=== PATIENT | female | born 1950 | race Caucasian/White ===

== ENCOUNTER 2016-12-12 21:18 | Emergency (ER) | payer OTHER ==
[~2016-12-12] VITALS: Ht 162.6 cm; Wt 73.7 kg
[~2016-12-12 21:18] MED LIST: ASPIR-LOW81 M1; Ascorbic Acid,Ester- PO; BACTRIM,SEPT1 TABLET PO; CYMBALTA60 MG PO; Calcium/Magnesiun/Zi PO; D VI PO; EXFORGE 10/11 TABLET; EXFORGE 10/11 TABLET PO; Ecotrin PO; FLAGYL500 MG PO; LEVAQUIN750 MG PO; Lysine,L-Lysine PO; MULTIVITAMIN1 EAC2 PO; NEXIUM40 MG; NEXIUM40 MG PO; PERCOCET 5/31 TABLET PO; Percocet 5/325,Endoc PO; Rocephin IV; SIMVASTATIN20 M1 PO; Selenium PO; Super B Complex-C PO; VIT E; ZITHROMAX Z-PA250 MG PO; Zocor PO
[2016-12-12 22:22] LABS: HEMATOCRIT 38.1 % (36.0-46.0); MCHC 34.1 G/DL (30.0-36.0); MCV 84.9 FL (83-99); MEAN PLAT.VOLUME 8.7 uM^3 (9.5-12.4); PLATELET COUNT 256 K/uL (156-360); RBC DIS.WIDTH-CV 12.9 % (11.8-14.6); RBC DIS.WIDTH-SD 39.3 % (39-53); RED BLOOD COUNT 4.49 M/uL (3.80-5.20); WHITE BLOOD COUNT 6.2 K/uL (4.1-10.2)
[2016-12-12 22:30] LABS: CHLORIDE 105 mEq/L (99-109); POTASSIUM 3.7 mEq/L (3.7-5.4); SODIUM 142 mEq/L (136-147)
[2016-12-12 22:32] LABS: GLUCOSE 109 mg/dL (70-99)
[2016-12-12 22:33] LABS: ANION GAP 14 MEQ/L (2-14)
[2016-12-12 22:36] LABS: GFR ESTIMATE (CALCULATED) 40 mL/min/
[2016-12-12 22:37] LABS: UREA NITROGEN (BUN) 27 mg/dL (9-23)
[2016-12-13 01:15] VITALS: BP 125/66
== END 2016-12-13 01:16 | disposition home or self-care (01) ==
LOC: EME 21:18
PROVIDERS: Emergency Medicine
DX: G43.909 Migraine, unspecified, not intractable, without status migrainosus (principal); K52.9 Noninfective gastroenteritis and colitis, unspecified; E86.0 Dehydration; E78.5 Hyperlipidemia, unspecified; I10 Essential (primary) hypertension; Z86.73 Personal history of transient ischemic attack (TIA), and cerebral infarction without residual deficits; Z88.1 Allergy status to other antibiotic agents; Z88.6 Allergy status to analgesic agent; Z91.013 Allergy to seafood
CPT/HCPCS: 70450; 80048; 85027; 99281; 99285; J1100; J1200; J1885; J2765; J7030

== ENCOUNTER 2017-01-26 21:12 | Emergency (ER) | payer OTHER ==
[~2017-01-26] VITALS: Ht 160 cm; Wt 76.1 kg
[2017-01-26 22:10] LABS: HEMATOCRIT 38.8 % (36.0-46.0); MCH 29.1 PG (29.0-34.0); MCHC 33.5 G/DL (30.0-36.0); MCV 86.8 FL (83-99); PLATELET COUNT 234 K/uL (156-360); RBC DIS.WIDTH-CV 12.8 % (11.8-14.6); RBC DIS.WIDTH-SD 40.2 % (39-53); RED BLOOD COUNT 4.47 M/uL (3.80-5.20)
[2017-01-26 22:34] LABS: CHLORIDE 107 mEq/L (99-109); POTASSIUM 3.8 mEq/L (3.7-5.4); SODIUM 142 mEq/L (136-147)
[2017-01-26 22:35] LABS: GLUCOSE 107 mg/dL (70-99)
[2017-01-26 22:37] LABS: ANION GAP 10 MEQ/L (2-14)
[2017-01-26 22:39] LABS: GFR ESTIMATE (CALCULATED) 53 mL/min/
[2017-01-26 22:40] LABS: UREA NITROGEN (BUN) 25 mg/dL (9-23)
[2017-01-26] MEDS ORDERED: FIORICET 50-301 EACH PO (23:10)
[2017-01-26 23:19] LABS: ADD MIUA? NO; BILIRUBIN NEGATIVE; BLOOD NEGATIVE; COLOR STRAW ((YELLOW)); GLUCOSE (STRIP) NEGATIVE; KETONES NEGATIVE; LEUKOCYTES NEGATIVE; NITRITE NEGATIVE; PROTEIN (STRIP) NEGATIVE; SPECIFIC GRAVITY 1.009 (1.000-1.030); UCUL ADDED? NO; UROBILINOGEN 0.2 MG/DL (0.2-1.0)
[2017-01-27 00:28] VITALS: BP 164/81
== END 2017-01-27 00:32 | disposition home or self-care (01) ==
LOC: EME 21:12
PROVIDERS: Nurse Practitioner Family
DX: G43.109 Migraine with aura, not intractable, without status migrainosus (principal); I10 Essential (primary) hypertension; N28.9 Disorder of kidney and ureter, unspecified; E78.5 Hyperlipidemia, unspecified; Z87.442 Personal history of urinary calculi; K21.9 Gastro-esophageal reflux disease without esophagitis; Z86.73 Personal history of transient ischemic attack (TIA), and cerebral infarction without residual deficits
CPT/HCPCS: 80048; 81003; 85027; 99281; 99285; J1200; J1885; J2765; J7030

== ENCOUNTER 2018-05-06 10:59 | Observation (INO) | payer OTHER ==
[~2018-05-06] VITALS: Ht 160 cm; Wt 78.5 kg
[~2018-05-06 10:59] MED LIST changes: +FIORICET 50-301 EACH PO
[2018-05-06 11:40] LABS: HEMATOCRIT 39.6 % (36.0-46.0); HEMOGLOBIN 13.3 G/DL (11.9-15.5); MCH 29.8 PG (29.0-34.0); MCHC 33.6 G/DL (30.0-36.0); MCV 88.6 FL (83-99); PLATELET COUNT 221 K/uL (156-360); RBC DIS.WIDTH-CV 13.2 % (11.8-14.6); RBC DIS.WIDTH-SD 42.4 % (39-53); RED BLOOD COUNT 4.47 M/uL (3.80-5.20)
[2018-05-06 11:57] LABS: CHLORIDE 107 mEq/L (99-109); POTASSIUM 4.3 mEq/L (3.7-5.4); SODIUM 142 mEq/L (136-147)
[2018-05-06 11:59] LABS: GLUCOSE 101 mg/dL (70-99); TOTAL PROTEIN 6.7 g/dL (6.4-8.3)
[2018-05-06 12:01] LABS: TOTAL BILIRUBIN 0.8 mg/dL (0.0-1.0); TROP-I INTERPRETATION NEGATIVE; TROPONIN-I 0.01 ng/mL (0.0-0.30)
[2018-05-06 12:03] LABS: ALKALINE PHOSPHATASE 106 IU/L (3-129); CREATININE 0.8 mg/dL (0.6-1.3); GFR ESTIMATE (CALCULATED) > 59 mL/min/
[2018-05-06 12:04] LABS: UREA NITROGEN (BUN) 26 mg/dL (9-23)
[2018-05-06 12:05] LABS: AST (GOT) 29 IU/L (2-34)
[2018-05-06 12:06] LABS: ALT (GPT) 34 IU/L (3-49); CKMB RELATIVE INDEX 1.4 (0.0-3.9); CREATINE KINASE 73 IU/L (1-294); TOTAL CK 73 IU/L (1-294)
[2018-05-06] MEDS ORDERED: LO-DOSE ASPIRIN81 M2 PO (15:27)
[2018-05-06] MEDS ORDERED: ASCORBIC ACID100 MG PO (15:28)
[2018-05-06] MEDS ORDERED: VITAMIN D31000 UNI2 PO (15:29)
[2018-05-06] MEDS ORDERED: L-LYSINE500 M1 PO (15:31)
[2018-05-06] MEDS ORDERED: SELENIUM100 MICROG PO (15:32)
[2018-05-06] MEDS ORDERED: SUPER B COMPL400 MCG PO (15:32)
[2018-05-06] MEDS ORDERED: VITAMIN E100 UNIT PO (15:33)
[2018-05-06] MEDS ORDERED: CLOBETASOL PROP60 GM TP (15:34)
[2018-05-06] MEDS ORDERED: AMLODIPINE-BEN1 EAC3 PO (15:34)
[2018-05-06] MEDS ORDERED: PREDNISONE20 MG PO (15:35)
[2018-05-06] MEDS ORDERED: CRESTOR20 MG PO (15:37)
[2018-05-06] MEDS ORDERED: ALLEGRA60 MG PO (15:37)
[2018-05-06] MEDS ORDERED: POTASSIUM-9999 MG PO (15:38)
[2018-05-06] MEDS ORDERED: VITAMIN B122500 MCG PO (15:38)
[2018-05-06] MEDS ORDERED: VALTREX1000 MG PO (15:39)
[2018-05-06 17:04] VITALS: BP 149/80
[2018-05-06 17:42] LABS: HDL CHOLESTEROL 64 MG/DL (Desirable>=50); LDL CHOLESTEROL 205 mg/dL (Desirable<100); NON-HDL CHOLESTEROL 236 mg/dL (Desirable<160); TOTAL CHOLESTEROL 300 mg/dL (Desirable<200); TRIGLYCERIDES 157 MG/DL (Normal: <150)
[2018-05-06 17:47] LABS: TROP-I INTERPRETATION NEGATIVE; TROPONIN-I 0.01 ng/mL (0.0-0.30)
[2018-05-06 19:38] VITALS: BP 132/64
[2018-05-06 20:29] LABS: TROP-I INTERPRETATION NEGATIVE; TROPONIN-I < 0.01 ng/mL (0.0-0.30)
[2018-05-07 00:20] VITALS: BP 121/62
[2018-05-07 03:18] LABS: ALBUMIN 3.8 g/dL (3.2-4.8); CHLORIDE 110 mEq/L (99-109); POTASSIUM 4.4 mEq/L (3.7-5.4); SODIUM 145 mEq/L (136-147)
[2018-05-07 03:20] LABS: GLUCOSE 108 mg/dL (70-99); TOTAL PROTEIN 5.9 g/dL (6.4-8.3)
[2018-05-07 03:22] LABS: TOTAL BILIRUBIN 0.8 mg/dL (0.0-1.0)
[2018-05-07 03:24] LABS: ALKALINE PHOSPHATASE 103 IU/L (3-129); CREATININE 0.9 mg/dL (0.6-1.3); GFR ESTIMATE (CALCULATED) > 59 mL/min/
[2018-05-07 03:25] LABS: UREA NITROGEN (BUN) 22 mg/dL (9-23)
[2018-05-07 03:26] LABS: AST (GOT) 22 IU/L (2-34)
[2018-05-07 03:27] LABS: ALT (GPT) 30 IU/L (3-49); TROP-I INTERPRETATION NEGATIVE; TROPONIN-I < 0.01 ng/mL (0.0-0.30)
[2018-05-07 04:21] VITALS: BP 121/62
[2018-05-07 08:37] VITALS: BP 141/67
== END 2018-05-07 10:21 | disposition home or self-care (01) ==
LOC: EME 10:59 → EDOF 15:37 → 4SOUTH 15:37 → ENRESERV 15:41 → 4SOUTH 16:54
PROVIDERS: Emergency Medicine; Physician Assistant Medical; Student in an Organized Health Care Education/Training Program
DX: R07.9 Chest pain, unspecified (principal); I34.1 Nonrheumatic mitral (valve) prolapse; I10 Essential (primary) hypertension; J45.909 Unspecified asthma, uncomplicated; R68.84 Jaw pain; R51 Headache; E78.5 Hyperlipidemia, unspecified; Z82.49 Family history of ischemic heart disease and other diseases of the circulatory system; K21.9 Gastro-esophageal reflux disease without esophagitis; R91.8 Other nonspecific abnormal finding of lung field; Z88.0 Allergy status to penicillin; Z88.1 Allergy status to other antibiotic agents; Z88.5 Allergy status to narcotic agent; Z79.82 Long term (current) use of aspirin
CPT/HCPCS: 71046; 74176; 80053; 80061; 81003; 82550; 82553; 84484; 85027; 85379; 93005; 99281; 99285; G0378; J1650; J7030

== ENCOUNTER 2018-06-06 11:38 | Emergency (ER) | payer OTHER ==
[~2018-06-06] VITALS: Ht 162.6 cm; Wt 79.6 kg
[~2018-06-06 11:38] MED LIST changes: +ALLEGRA60 MG PO; +AMLODIPINE-BEN1 EAC3 PO; +ASCORBIC ACID100 MG PO; +CLOBETASOL PROP60 GM TP; +CRESTOR20 MG PO; +L-LYSINE500 M1 PO; +LO-DOSE ASPIRIN81 M2 PO; +POTASSIUM-9999 MG PO; +PREDNISONE20 MG PO; +SELENIUM100 MICROG PO; +SUPER B COMPL400 MCG PO; +VALTREX1000 MG PO; +VITAMIN B122500 MCG PO; +VITAMIN D31000 UNI2 PO; +VITAMIN E100 UNIT PO
[2018-06-06 15:57] VITALS: BP 130/71
== END 2018-06-06 15:59 | disposition home or self-care (01) ==
LOC: EME 11:38
DX: S06.0X0A Concussion without loss of consciousness, initial encounter (principal); W18.30XA Fall on same level, unspecified, initial encounter; E78.5 Hyperlipidemia, unspecified; I10 Essential (primary) hypertension; Z86.73 Personal history of transient ischemic attack (TIA), and cerebral infarction without residual deficits; K21.9 Gastro-esophageal reflux disease without esophagitis; J45.909 Unspecified asthma, uncomplicated; Z79.82 Long term (current) use of aspirin; Z88.5 Allergy status to narcotic agent; Z88.1 Allergy status to other antibiotic agents; Z88.0 Allergy status to penicillin
CPT/HCPCS: 70450; 99281; 99284